=== PATIENT | female | born 1980 | race Caucasian/White ===

== ENCOUNTER 2020-04-06 16:21 | Inpatient (IN) | payer OTHER ==
[2020-04-06] MEDS ORDERED: NALOXONE 0.4 MG/ML 1 ML VIAL IVP STA ×2 (16:25→17:08)
--- NOTE | 2020-04-06 17:26 | ED ---
General Adult HPI - General Chief complaint: Altered Mental Status Stated complaint: altered mental status Time Seen by Provider: 04/06/20 16:25 Source: EMS, RN notes reviewed Mode of arrival: EMS Limitations: altered mental status - History of Present Illness Initial comments: 39-year-old female with a past medical history of IV drug abuse including co clive and heroin presents to the emergency department for a chief complaint of altered mental status. Patient was being dropped off at [facility] for rehab when she became altered. Patient was difficult to arouse. Patient does report she did IV heroin earlier this morning. She did not do any other drugs or medications.Patient has no other complaints at this time including shortness of breath, chest pain, abdominal pain, nausea or vomiting, headache, or visual changes. - Related Data Home Medications Medication Instructions Recorded Confirmed Unable To Assess [Unable to Assess] 04/06/20 04/06/20 Allergies Allergy/AdvReac Type Severity Reaction Status Date / Time No Known Allergies Allergy Verified 04/06/20 16:41 Review of Systems ROS Statement: Those systems with pertinent positive or pertinent negative responses have been documented in the HPI. ROS Other: All systems not noted in ROS Statement are negative. Past Medical History Additional Past Medical History / Comment(s): IV drug use Additional Past Surgical History / Comment(s): Unknown Past Drug Use History: Cocaine, Heroin General Exam Limitations: altered mental status General appearance: alert, in no apparent distress Head exam: Present: atraumatic, normocephalic, normal inspection Eye exam: Present: normal appearance, PERRL, EOMI. Absent: scleral icterus, conjunctival injection, periorbital swelling ENT exam: Present: normal exam, mucous membranes moist Neck exam: Present: normal inspection, full ROM. Absent: tenderness, meningismus, lymphadenopathy Respiratory exam: Present: normal lung sounds bilaterally. Absent: respiratory distress, wheezes, rales, rhonchi, stridor Cardiovascular Exam: Present: regular rate, normal rhythm, normal heart sounds. Absent: systolic murmur, diastolic murmur, rubs, gallop, clicks GI/Abdominal exam: Present: soft, normal bowel sounds. Absent: distended, tenderness, guarding, rebound, rigid Neurological exam: Present: alert Course Vital Signs 04/06/20 04/06/20 04/06/20 16:25 16:41 17:11 Temperature 98 F Pulse Rate 101 H Respiratory 16 18 14 Rate Blood Pressure 179/92 O2 Sat by Pulse 96 Oximetry 04/06/20 04/06/20 04/06/20 17:14 19:29 21:01 Temperature Pulse Rate 86 72 Respiratory 16 Rate Blood Pressure 170/100 179/103 161/102 O2 Sat by Pulse 100 99 Oximetry 04/06/20 21:49 Temperature 98 F Pulse Rate 72 Respiratory 16 Rate Blood Pressure 162/107 O2 Sat by Pulse 99 Oximetry - Reevaluation(s) Reevaluation #1: 04/06/20 22:59 patient was able to walk to the bathroom without assistance. Medical Decision Making - Medical Decision Making patient initially arousable to physical stimuli. Patient was given 1.6 mg of Narcan. Patient is now alert and oriented however continues to be agitated and not back to baseline. She is maintaining respirations and O2 saturation. She was evaluated by Dr. Henderson. Patient is satting at 99% but continues to be lethargic and will be admitted for further monitoring. - Lab Data Result diagrams: 04/06/20 18:28 04/06/20 18:28 Lab Results 04/06/20 04/06/20 Range/Units 18:28 18:28 WBC 8.2 (3.8-10.6) k/uL RBC 5.32 (3.80-5.40) m/uL Hgb 12.6 (11.4-16.0) gm/dL Hct 39.8 (34.0-46.0) % MCV 74.9 L (80.0-100.0) fL MCH 23.6 L (25.0-35.0) pg MCHC 31.6 (31.0-37.0) g/dL RDW 16.0 H (11.5-15.5) % Plt Count 493 H (150-450) k/uL Neutrophils % 71 % Lymphocytes % 19 % Monocytes % 3 % Eosinophils % 3 % Basophils % 1 % Neutrophils # 5.8 (1.3-7.7) k/uL Lymphocytes # 1.6 (1.0-4.8) k/uL Monocytes # 0.3 (0-1.0) k/uL Eosinophils # 0.3 (0-0.7) k/uL Basophils # 0.1 (0-0.2) k/uL Anisocytosis Slight Microcytosis Slight Sodium 138 (137-145) mmol/L Potassium 3.6 (3.5-5.1) mmol/L Chloride 102 (98-107) mmol/L Carbon Dioxide 27 (22-30) mmol/L Anion Gap 9 mmol/L BUN 14 (7-17) mg/dL Creatinine 0.53 (0.52-1.04) mg/dL Est GFR (CKD-EPI)AfAm >90 (>60 ml/min/1.73 sqM) Est GFR (CKD-EPI)NonAf >90 (>60 ml/min/1.73 sqM) Glucose 100 H (74-99) mg/dL Calcium 9.7 (8.4-10.2) mg/dL Disposition Clinical Impression: Altered mental status, Drug overdose Disposition: ADMITTED IP TO THIS HOSP Condition: Fair Is patient prescribed a controlled substance at d/c from ED?: No Time of Disposition: 18:59
[2020-04-06 18:35] LABS: Anisocytosis Slight; Basophils # (A) 0.1 k/uL (0-0.2); Basophils % (A) 1 %; Eosinophils # (A) 0.3 k/uL (0-0.7); Eosinophils % (A) 3 %; HCT 39.8 % (34.0-46.0); HGB 12.6 gm/dL (11.4-16.0); Lymphocytes # (A) 1.6 k/uL (1.0-4.8); Lymphocytes % (A) 19 %; MCH 23.6 pg (25.0-35.0); MCHC 31.6 g/dL (31.0-37.0); MCV 74.9 fL (80.0-100.0); Mean Platelet Volume 6.8; Microcytosis Slight; Monocytes # (A) 0.3 k/uL (0-1.0); Monocytes % (A) 3 %; Neutrophils # (A) 5.8 k/uL (1.3-7.7); Neutrophils % (A) 71 %; Platelet Count 493 k/uL (150-450); RBC 5.32 m/uL (3.80-5.40); WBC 8.2 k/uL (3.8-10.6)
[2020-04-06 18:47] LABS: African American GFR (CKD) >90 (>60 ml/min/1.73 sqM); Anion Gap 9 mmol/L; Blood Urea Nitrogen 14 mg/dL (7-17); Calcium 9.7 mg/dL (8.4-10.2); Carbon Dioxide 27 mmol/L (22-30); Chloride 102 mmol/L (98-107); Glucose 100 mg/dL (74-99); Non-African American GFR(CKD) >90 (>60 ml/min/1.73 sqM); Potassium 3.6 mmol/L (3.5-5.1); Sodium 138 mmol/L (137-145)
[2020-04-06] MEDS ORDERED: NALOXONE 0.4 MG/ML 1 ML VIAL IV PRN (18:56)
[2020-04-06] MEDS ORDERED: LABETALOL 5 MG/ML VIAL MDV IVP STA (20:25)
[2020-04-06] MEDS: SODIUM CHLORIDE 0.9% 1,000 ML IV SCH (20:44)
[2020-04-06] MEDS ORDERED: hydrALAZINE HCL 20 MG/ML 1 ML VIAL IVP STA (21:19)
[2020-04-07] MEDS: SODIUM CHLORIDE 0.9% 1,000 ML IV SCH (11:23)
[2020-04-07] MEDS ORDERED: TEMAZEPAM 15 MG CAP PO PRN (12:43)
[2020-04-07] MEDS ORDERED: KETOROLAC 15 MG/ML 1 ML VIAL IVP PRN (12:44)
--- NOTE | 2020-04-07 13:29 | HP ---
HISTORY AND PHYSICAL CHIEF COMPLAINTS: Change in mental status, and heroin overdose. HISTORY OF PRESENT ILLNESS: This 39-year-old woman with a past medical history of significant substance abuse problems including cocaine, current living in [place], was taken to [facility] but because the patient was drowsy and noncommunicative, the patient was sent to [facility] Emergency Room and admitted for further evaluation and treatment. There is no history of fever, rigors, chills. No headache, loss of consciousness or seizures. A detailed history cannot be obtained from the patient. The patient is drowsy. Most of my history if taken from my discussion with the staff and review of the chart at this time. PAST MEDICAL HISTORY: History of IV drug abuse. MEDICATIONS: Unknown. ALLERGIES: Unknown. FAMILY HISTORY: Could not be taken because of above mentioned reasons. SOCIAL HISTORY: Could not be taken because of above mentioned reasons. REVIEW OF SYSTEMS: Could not be taken because of above mentioned reasons. PHYSICAL EXAM: Patient is arousable. Pulse 74, blood pressure 162/82, respirations 16, temperature 97.4, pulse ox 98% on room air. HEENT: Conjunctivae normal. Oral mucosa moist. NECK: No jugular venous distention. No carotid bruits. No lymph node enlargement. CARDIOVASCULAR SYSTEMS: Breath sounds diminished in the bases, no rhonchi and no crackles. ABDOMEN: Soft, nontender. No mass palpable. LEGS: No edema, no swelling. NERVOUS SYSTEM: Higher functions as mentioned earlier. Moves all 4 limbs. Otherwise full neurology evaluation could not be done. SKIN: No ulcers, rash, bleeding. JOINTS: No active deforming arthropathy. LYMPHATICS: No lymph nodes in the neck or axilla. LABS: WBC 8.2, hemoglobin 12.6 and MCV 74.9, platelets 493 and glucose 100. ASSESSMENT: 1. Change in mental status, possible acute toxic metabolic encephalopathy secondary to drug overdose. 2. Possible heroin overdose. 3. History IV drug abuse with cocaine and heroin. 4. Hypertension. 5. Increased platelets. 6. FULL CODE. RECOMMENDATIONS AND DISCUSSION: This is a 39-year-old woman who presented with multiple complex medical issues. At this time, will continue the current management and symptomatic treatment. Use p.r.n. Ativan. Initiate clonidine. Otherwise, repeat labs. Psychiatric consultation. I would also recommend baseline labs include UA and also UA with micro. See orders for further details. Prognosis guarded. Further recommendations to follow. Discussed with staff. MMODL / IJN: [id number] /
[2020-04-07] MEDS ORDERED: cloNIDine HCL 0.1 MG TAB PO SCH (16:00)
[2020-04-07] MEDS ORDERED: hydrALAZINE HCL 20 MG/ML 1 ML VIAL IVP STA (16:01)
[2020-04-07] MEDS: LORazepam 2 MG/ML INJ IV PRN (16:04)
[2020-04-07] MEDS ORDERED: cloNIDine HCL 0.1 MG TAB PO STA (17:01)
--- NOTE | 2020-04-07 19:06 | XR ---
EXAMINATION TYPE: XR chest 1V portable DATE OF EXAM: 04/07/2020 COMPARISON: NONE HISTORY: Cough TECHNIQUE: Single view FINDINGS: Heart and mediastinum are within normal limits. Lungs are clear. Costophrenic angles are cl ear. There are no hilar masses. Bony thorax is intact. There is left-sided nipple shadow. IMPRESSION: Normal chest.
--- NOTE | 2020-04-07 20:41 | CONS ---
CONSULTATION DATE OF SERVICE: 04/07/2020 REASON FOR CONSULTATION: Altered mental status and overdose on heroin. IDENTIFYING DATA: Patient is a 39-year-old female in who is currently homeless. The patient presented to the emergency room with altered mental status. HISTORY OF PRESENT ILLNESS: The patient was being dropped off at [facility] for rehab. However, she was confused and it was very difficult to arouse her, so she was transferred to the ER for medical clearance. The patient did admit that she has been using IV heroin for more than 7 or 10 years. Also she has been using cocaine. The patient was very vague and evasive about the amount and how often she has been using this. She stated that she did rehab more than once at [facility], but she always relapsed after discharge. Today the patient denied any suicidal or homicidal ideation. She stated that she has 5 children, but she does not have any contact with them because of her addiction. PAST PSYCHIATRIC HISTORY: The patient is very poor historian. However, she stated that she never had been suicidal and she never had been treated for depression, but she complains that she has been having anxiety most of her life. She used to drink. FAMILY PSYCHIATRIC HISTORY: The patient is not aware of any mental illness or chemical dependency in the family. MEDICAL HISTORY: She is complaining of back pain but was not clear if she is taking any medication for this. Substance use disorder; as I mentioned before, extensive history of cocaine use and IV heroin. She did attend at least 3-4 rehabs in the past, but she always relapsed after discharge. SOCIAL HISTORY: The patient is currently homeless. She was . The marriage ended by divorce and she has 5 children, who are living with their dad. The patient does not have any contact with them due to her addiction. LEGAL PROBLEMS: The patient denied any current legal problem. MENTAL STATUS EXAMINATION: Patient presented as a very thin-appearing female who is unkempt. She was able to wake up. However, she is a very poor historian. She made good eye contact and tried to be cooperative during the interview. She had a blunted affect. She is alert and oriented to the person. There is no abnormal psychomotor agitation or involuntary movement. Her speech was not spontaneous but coherent. Most of her answers were one- or two-word answers. She denied having any suicidal ideation or wish. She denied homicidal ideation. She denied feeling hopeless or helpless. She is ruminating about her physical health. She did not express any paranoia or idea of reference. Her thinking is concrete. She denied hallucinations and did not appear to be responding to internal stimuli. Her insight and judgment are limited regarding her addiction. IMPRESSION: 1. Opiate use disorder, severe. 2. Cocaine use disorder. PLAN: There is no indication for transfer to a psychiatric unit. The patient is not suicidal or homicidal. The patient is willing to pursue inpatient substance abuse rehab. We asked the social human services assistants to facilitate her transfer to [facility] for substance abuse. Thank you for this consult. Psychiatry will sign off on this case. MMODL / IJN: [id number] /
[2020-04-07] MEDS: hydrALAZINE HCL 25 MG TAB PO SCH (21:04)
[2020-04-07] MEDS: cloNIDine HCL 0.2 MG TAB PO SCH (21:04)
[2020-04-07] MEDS: HEPARIN SODIUM,PORCINE 5,000 UNIT/ML 1 ML VIAL SQ SCH (21:04)
[2020-04-08] MEDS: SODIUM CHLORIDE 0.9% 1,000 ML IV SCH ×2 (02:50→10:35)
[2020-04-08 06:00] LABS: Anisocytosis Slight; Basophils % (A) 0 %; Eosinophils # (A) 0.1 k/uL (0-0.7); Eosinophils % (A) 1 %; HCT 43.8 % (34.0-46.0); Lymphocytes # (A) 1.2 k/uL (1.0-4.8); Lymphocytes % (A) 9 %; MCH 23.6 pg (25.0-35.0); MCHC 31.8 g/dL (31.0-37.0); Mean Platelet Volume 6.5; Microcytosis Moderate; Monocytes # (A) 0.4 k/uL (0-1.0); Monocytes % (A) 3 %; Neutrophils # (A) 11.8 k/uL (1.3-7.7); Neutrophils % (A) 86 %; Platelet Count 661 k/uL (150-450); RBC 5.92 m/uL (3.80-5.40); RDW 16.3 % (11.5-15.5); WBC 13.7 k/uL (3.8-10.6)
[2020-04-08 06:12] LABS: African American GFR (CKD) >90 (>60 ml/min/1.73 sqM); Anion Gap 12 mmol/L; Blood Urea Nitrogen 21 mg/dL (7-17); Calcium 10.3 mg/dL (8.4-10.2); Carbon Dioxide 20 mmol/L (22-30); Chloride 100 mmol/L (98-107); Glucose 155 mg/dL (74-99); Non-African American GFR(CKD) >90 (>60 ml/min/1.73 sqM); Potassium 4.3 mmol/L (3.5-5.1); Sodium 132 mmol/L (137-145)
[2020-04-08] MEDS ORDERED: PANTOPRAZOLE 40 MG TABLET PO SCH (07:30)
[2020-04-08] MEDS: cloNIDine HCL 0.2 MG TAB PO SCH ×2 (08:10→14:59)
[2020-04-08] MEDS: hydrALAZINE HCL 25 MG TAB PO SCH ×2 (08:10→14:59)
[2020-04-08] MEDS: HEPARIN SODIUM,PORCINE 5,000 UNIT/ML 1 ML VIAL SQ SCH (08:11)
[2020-04-08] MEDS: LORazepam 2 MG/ML INJ IV PRN (08:13)
[2020-04-08 10:37] LABS: Appearance,Urine Turbid (Clear); Bacteria,Urine Moderate /hpf; Bilirubin,Urine Negative (Negative); Blood,Urine Trace (Negative); Color,Urine Yellow; Glucose,Urine (UA) Negative (Negative); Ketones,Urine Negative (Negative); Leukocyte Esterase,Urine Large (Negative); Mucus,Urine Occasional /hpf; Nitrite,Urine Positive (Negative); Protein,Urine 1+ (Negative); RBC,Urine 73 /hpf (0-5); Specific Gravity,Urine 1.016 (1.001-1.035); Squamous Epithelial Cell,Urine 4 /hpf (0-4); Urobilinogen,Urine <2.0 mg/dL (<2.0); WBC,Urine >182 /hpf (0-5)
[2020-04-08 10:43] LABS: Amphetamine Screen,Urine Not Detected (NotDetected); Barbiturate Screen,Urine Not Detected (NotDetected); Benzodiazepines Screen,Urine Detected (NotDetected); Cocaine Screen,Urine Detected (NotDetected); Methadone Screen, Urine Not Detected (NotDetected); Opiate Screen,Urine Not Detected (NotDetected); Oxycodone Screen, Urine Not Detected (NotDetected); Phencyclidine Screen,Urine Not Detected (NotDetected); Tricyclic Antidepressant,Urine Not Detected (NotDetected); Urn Cannabinoid Scrn Not Detected (NotDetected)
[2020-04-08] MEDS ORDERED: METOPROLOL TARTRATE 25 MG TAB PO SCH (14:31)
[2020-04-08 15:02] VITALS: BP 169/96; PULSE 91; RESP 16; TEMP 98.3
[2020-04-08] MEDS ORDERED: metroNIDAZOLE 500 MG TAB PO SCH (16:00)
--- NOTE | 2020-04-08 17:30 | PN ---
PROGRESS NOTE DATE OF SERVICE: 04/08/2020 This 39-year-old woman who was admitted in change in mental status and heroin overdose had a UTI also. No chest pain. No palpitations. No fever. Psychiatry has seen the patient. Baseline chest x-ray is normal. PHYSICAL EXAMINATION: Alert and oriented x2, slightly drowsy. The pulse is 139, blood pressure 178/114, respiration 14, temperature 97.7. HEENT: Conjunctivae normal. NECK: No jugular venous distention. CARDIOVASCULAR SYSTEM: S1, S2 muffled. RESPIRATORY SYSTEM: Breath sounds diminished at the bases. A few scattered rhonchi and crackles. ABDOMEN: Soft. Non-tender. LEGS: No edema. No swelling. NERVOUS SYSTEM: No focal deficit. LABS: WBC 13.2, hemoglobin 14, sodium 132, creatinine 4.47. Other labs are noted. UA noted. Drug screen positive for cocaine, benzodiazepines. ASSESSMENT: 1. Change in mental status, possible acute metabolic encephalopathy secondary to drug overdose. 2. Possible heroin and cocaine overdose. 3. Hypertension. 4. Acute urinary tract infection, present on admission. 5. History of IV drug abuse with cocaine and heroin. 6. Hypertension. 7. Increased platelets. 8. FULL CODE. 9. Mild hyponatremia. 10.Increased white count. RECOMMENDATIONS AND DISCUSSION: In this 39-year-old woman who presented with multiple complex medical issues, we will monitor the patient closely, continue the current medications, continue with symptomatic treatment. Will initiate Flagyl and Rocephin. Otherwise, continue to monitor. Ativan p.r.n. Supplement vitamins. Clonidine. Blood pressure is still elevated. I would recommend adding Lopressor to her current regimen also. Further recommendations to follow. MMODL / IJN: [id number] /
[2020-04-09] MEDS ORDERED: FOLIC ACID 1 MG TAB PO SCH (12:00)
[2020-04-09] MEDS ORDERED: MULTIVITAMINS, THERA 1 EACH TAB PO SCH (12:00)
[2020-04-09] MEDS ORDERED: THIAMINE 100 MG TAB PO SCH (12:00)
--- NOTE | 2020-04-10 07:15 | DS ---
DISCHARGE SUMMARY FINAL DIAGNOSES: 1. Change in mental status possible acute metabolic encephalopathy secondary to drug overdose. 2. Possible heroin and cocaine overdose. 3. Hypertension. 4. Acute urinary tract infection, present on admission. 5. History of IV drug abuse with cocaine and heroin. 6. Increased platelets. 7. FULL CODE. 8. Mild hyponatremia. 9. Increased WBC. DISCHARGE DISPOSITION: The patient left the hospital AGAINST MEDICAL ADVICE. HISTORY OF PRESENT ILLNESS: This 39-year-old woman was admitted with acute heroin overdose and change in mental status, also had UTI. The patient has been treated, but however the patient left the hospital AGAINST MEDICAL ADVICE. The prognosis was extremely guarded throughout hospitalization. Please refer to the multiple progress notes, ER notes, consultations and staff notes for further information. MMODL / IJN: [id number] /
== END 2020-04-08 22:30 | disposition left against medical advice (07) | DRG 689 ==
LOC: EC 16:21 → 1SOBS 19:00 → OBSVTOIN 04-08 09:37
PROVIDERS: ADMIT Internal Medicine; ATTEND Internal Medicine
DX: N39.0 Urinary tract infection, site not specified (principal); G92 Toxic encephalopathy; E87.1 Hypo-osmolality and hyponatremia; F11.20 Opioid dependence, uncomplicated; T40.1X1A Poisoning by heroin, accidental (unintentional), initial encounter; F14.10 Cocaine abuse, uncomplicated; Z20.828 Contact with and (suspected) exposure to other viral communicable diseases; F41.9 Anxiety disorder, unspecified; I10 Essential (primary) hypertension; M54.9 Dorsalgia, unspecified; Z59.0 Homelessness
CPT/HCPCS: 36415; 71045; 80048; 80306; 81001; 85025; 96361; 96374; 96375; 99285